=== PATIENT | male | born 1950 | race Caucasian/White ===

== ENCOUNTER 2017-09-26 14:24 | Observation (INO) | payer MEDICARE ==
[2017-09-26] MEDS ORDERED: Albuterol-Ipratrop 3 mg / 0.5 (3 ml) UD IH STA (15:05)
[2017-09-26] MEDS ORDERED: Albuterol-Ipratrop 3 mg / 0.5 (3 ml) UD INH STA (15:05)
--- NOTE | 2017-09-26 15:09 | ED PDOC ---
HPI: CCC, URI, Sore Throat Time Seen by Provider: 09/26/17 14:56 Chief Complaint (Nursing): Cough, Cold, Congestion Chief Complaint (Provider): Cough History Per: Patient History/Exam Limitations: no limitations Onset/Duration Of Symptoms: Days (x 2 weeks) Current Symptoms Are (Timing): Still Present Additional Complaint(s): 67-year-old male with a past medical history of hypertension, diabetes, and hypercholesterolemia, presents to the ER for 2 weeks of coughing. Cough is associated with congestion and yellow mucus production. Patient also reports feeling fatigued. No nausea, vomiting, diarrhea, fever, chills, sore throat, chest pain. Patient states he had asthma as a child but denies wheezing. Took robitussin at home without relief. Mild dyspnea off and on. PMD: Dr. Toledo Past Medical History Reviewed: Historical Data, Nursing Documentation, Vital Signs Vital Signs: Last Vital Signs Temp 98.1 F 09/26/17 14:49 Pulse 94 H 09/26/17 16:56 Resp 18 09/26/17 16:56 BP 174/100 H 09/26/17 16:56 Pulse Ox 97 09/26/17 16:57 - Medical History PMH: Diabetes, HTN, Hypercholesterolemia - Family History Family History: States: Unknown Family Hx - Allergies Allergies/Adverse Reactions: Allergies Allergy/AdvReac Type Severity Reaction Status Date / Time No Known Allergies Allergy Verified 09/26/17 14:48 Review of Systems ROS Statement: Except As Marked, All Systems Reviewed And Found Negative Constitutional: Negative for: Fever, Chills, Other (body aches) ENT: Positive for: Nose Congestion. Negative for: Throat Pain Cardiovascular: Negative for: Chest Pain Respiratory: Positive for: Cough, Shortness of Breath, Sputum. Negative for: Wheezing Gastrointestinal: Negative for: Nausea, Vomiting, Diarrhea Neurological: Negative for: Weakness Physical Exam - Reviewed Nursing Documentation Reviewed: Yes Vital Signs Reviewed: Yes - Physical Exam Appears: Positive for: Non-toxic, No Acute Distress Head Exam: Positive for: ATRAUMATIC, NORMOCEPHALIC Skin: Positive for: Normal Color, Warm, Dry Eye Exam: Positive for: EOMI, Normal appearance, PERRL ENT: Positive for: Normal ENT Inspection. Negative for: Pharyngeal Erythema, Tonsillar Exudate Neck: Positive for: Normal, Painless ROM, Supple Cardiovascular/Chest: Positive for: Regular Rate, Rhythm. Negative for: Murmur Respiratory: Positive for: Other (course breath sounds bilaterally). Negative for: Respiratory Distress Pulses-Radial (L): 2+ Pulses-Radial (R): 2+ Gastrointestinal/Abdominal: Positive for: Normal Exam, Soft. Negative for: Tenderness Back: Positive for: Normal Inspection. Negative for: L CVA Tenderness, R CVA Tenderness, Vertebral Tenderness Extremity: Positive for: Normal ROM. Negative for: Pedal Edema, Deformity Neurologic/Psych: Positive for: Alert, Oriented. Negative for: Motor/Sensory Deficits - Laboratory Results Result Diagrams: 09/26/17 16:12 09/26/17 16:12 Interpretation Of Abn Labs: 943 probnp, elevated sugar - ECG ECG: Positive for: Interpreted By Me, Viewed By Me ECG Rhythm: Positive for: Nonspecific Changes O2 Sat by Pulse Oximetry: 97 (RA) Pulse Ox Interpretation: Normal - Radiology X-Ray: Read By Radiologist X-Ray Interpretation: No Acute Disease - Progress ED Course And Treament: 1700: Stable. AAOx3. Pain free. Will need admit for further eval of chf. Pt. agrees. Spoke with Dr. Lynn. Will admit and give further orders when pt. reaches floor. Medical Decision Making Medical Decision Making: Time: 15:04 Initial Impression: 67 y/o male with cough and congestion Initial Plan: --EKG --CMP --B-type natriuretic peptide --Troponin I --CBC w/ differential --PTT --Prothrombin time --Influenza A B --Chest X-ray --Duoneb 3ml INH x2 --Solu-medrol 125 mg IVP --Peak Flow pre/post treatment --Reevaluation Scribe Attestation: Documented by Ana Nava, acting as a scribe for Esteban Young MD Provider Scribe Attestation: All medical record entries made by the Scribe were at my direction and personally dictated by me. I have reviewed the chart and agree that the record accurately reflects my personal performance of the history, physical exam, medical decision making, and the department course for this patient. I have also personally directed, reviewed, and agree with the discharge instructions and disposition. Disposition - Clinical Impression Clinical Impression: CHF exacerbation - Patient ED Disposition Is Patient to be Admitted: Yes Counseled Patient/Family Regarding: Studies Performed, Diagnosis - Disposition Disposition Time: 17:02 Condition: FAIR - Pt Status Changed To: Hospital Disposition Of: Observation - POA Present On Arrival: None
--- NOTE | 2017-09-26 15:47 | RAD ---
HISTORY: dyspnea COMPARISON: 10/29/2012 FINDINGS: LUNGS: No active pulmonary disease. PLEURA: No significant pleural effusion identified, no pneumothorax apparent. CARDIOVASCULAR: Normal. OSSEOUS STRUCTURES: No significant abnormalities. VISUALIZED UPPER ABDOMEN: Normal. OTHER FINDINGS: None. IMPRESSION: No active disease.
[2017-09-26] MEDS ORDERED: Albuterol-Ipratrop 3 mg / 0.5 (3 ml) UD ONE (15:50)
[2017-09-26 16:17] LABS: BASO % 0.4 % (0.0-2.0); EOS # 0.3 K/uL (0.0-0.7); EOS % 3.1 % (0.0-4.0); HEMOGLOBIN 13.1 g/dL (12.0-18.0); LYMPH # 1.4 K/uL (1.0-4.3); LYMPH % 15.2 % (20.0-40.0); MEAN CELL VOLUME 90.1 fl (80.0-94.0); MEAN CORPUSCULAR HEMOGLOBIN 29.4 pg (27.0-31.0); MEAN CORPUSCULAR HGB CONC 32.6 g/dL (33.0-37.0); MEAN PLATELET VOLUME 7.2 fl (7.2-11.7); MONO # 0.9 K/uL (0.0-0.8); MONO % 9.3 % (0.0-10.0); NEUT # 6.9 K/uL (1.8-7.0); RBC 4.47 Mil/uL (4.40-5.90); RED CELL DISTRIBUTION WIDTH 12.8 % (11.5-14.5); WHITE BLOOD COUNT 9.5 K/uL (4.8-10.8)
[2017-09-26 16:30] LABS: ALB/GLOB RATIO 1.1 (1.0-2.1); ALT/SGPT 61 U/L (21-72); AST/SGOT 37 U/L (17-59); BLOOD UREA NITROGEN 20 mg/dl (9-20); CALCIUM 9.2 mg/dL (8.4-10.2); GFR AFRICAN-AMERICAN > 60; GFR NON-AFRICAN AMERICAN > 60
[2017-09-26 16:32] LABS: INR 0.9 (0.9-1.2); PARTIAL THROMBOPLASTIN TIME 34.7 Seconds (25.6-37.1); PROTHROMBIN TIME 9.8 Seconds (9.8-13.1)
[2017-09-26 16:43] LABS: B-TYPE NATRIURETIC PEPTIDE 943 pg/ml (0-900)
[2017-09-26] MEDS ORDERED: Insulin Regular 100 units/ml IV STA (16:58)
[2017-09-26] MEDS ORDERED: Insulin Regular 100 units/ml ONE (17:38)
[2017-09-26] MEDS ORDERED: Albuterol-Ipratrop 3 mg / 0.5 (3 ml) UD INH PRN (19:40)
[2017-09-26] MEDS: Insulin Regular 100 units/ml SC SCH (21:38)
[2017-09-26] MEDS ORDERED: Pneumococcal 23-Valent Vaccine IM ONE (22:27)
[2017-09-26] MEDS ORDERED: Influenza Vaccine 18yr & older 0.5 ML/45 MCG SYR IM ONE (22:27)
[2017-09-27 05:46] LABS: HEMOGLOBIN 13.6 g/dL (12.0-18.0); MEAN CELL VOLUME 89.5 fl (80.0-94.0); MEAN CORPUSCULAR HEMOGLOBIN 29.9 pg (27.0-31.0); MEAN CORPUSCULAR HGB CONC 33.4 g/dL (33.0-37.0); RBC 4.54 Mil/uL (4.40-5.90); RED CELL DISTRIBUTION WIDTH 12.4 % (11.5-14.5); WHITE BLOOD COUNT 10.9 K/uL (4.8-10.8)
[2017-09-27 05:55] LABS: BLOOD UREA NITROGEN 28 mg/dl (9-20); CALCIUM 9.3 mg/dL (8.4-10.2); GFR AFRICAN-AMERICAN > 60; GFR NON-AFRICAN AMERICAN > 60; HDL CHOLESTEROL 48 MG/DL (30-70)
[2017-09-27 06:06] LABS: B-TYPE NATRIURETIC PEPTIDE 1450 pg/ml (0-900); LDL CHOLESTEROL 128 mg/dL (0-129)
[2017-09-27] MEDS: Insulin Regular 100 units/ml SC SCH ×2 (06:36→12:40)
[2017-09-27] MEDS ORDERED: Pravastatin Sodium 20 MG TAB PO SCH (09:00)
[2017-09-27] MEDS ORDERED: Enoxaparin 40 mg Syringe SC SCH (09:00)
--- NOTE | 2017-09-27 10:54 | CARD ---
APPROVED REPORT EKG Measurement Heart [id number] <Conclusion> Normal sinus rhythm Possible Left atrial enlargement Left ventricular hypertrophy Cannot rule out Anteroseptal infarct, age undetermined Abnormal ECG
--- NOTE | 2017-09-27 12:00 | CARD ---
APPROVED REPORT EXAM: Two-dimensional and M-mode echocardiogram with Doppler and color Doppler. Other Information Quality : GoodRhythm : INDICATION Congestive Heart Failure 2D DIMENSIONS Left Atrium (2D)3.21 (1.6-4.0cm)IVSd1.05 (0.7-1.1cm) Aortic Root (2D)2.64 (2.0-3.7cm)LVDd4.97 (3.9-5.9cm) LVOT Diameter1.67 (1.8-2.4cm)PWd0.74 (0.7-1.1cm) IVSs1.32 (0.8-1.2cm)LVDs3.51 (2.5-4.0cm) FS (%) 29.5 %PWs1.37 (0.8-1.2cm) M-Mode DIMENSIONS Left Atrium (MM)3.43 (2.5-4.0cm)IVSd1.13 (0.7-1.1cm) Aortic Root3.23 (2.2-3.7cm)LVDd5.33 (4.0-5.6cm) Aortic Cusp Exc.1.37 (1.5-2.0cm)PWd1.03 (0.7-1.1cm) IVSs1.43 cmFS (%) 19 % LVDs4.33 (2.0-3.8cm)PWs1.37 cm Aortic Valve AI P 1/2 [id number] Mitral Valve E/A ratio0.0 TDI Lateral E' Peak V12.06cm/sMedial E' Peak V11.98cm/sE/Lateral E'0.0 E/Medial E'0.0 Pulmonary Valve PV Peak Nbxfsmzq391.5cm/s LEFT VENTRICLE The left ventricle is normal size. There is normal left ventricular wall thickness. The left ventricular function is normal. The left ventricular ejection fraction is within the normal range. The Ejection Fraction is 60-65%. There is normal LV segmental wall motion. The left ventricular diastolic function is normal. No left ventricle thrombus noted on this study. RIGHT VENTRICLE The right ventricle is normal size. There is normal right ventricular wall thickness. The right ventricular systolic function is normal. ATRIA The left atrium size is normal. The right atrium size is normal. The interatrial septum is intact with no evidence for an atrial septal defect. AORTIC VALVE The aortic valve is normal in structure. There is mild aortic regurgitation. There is no aortic valvular stenosis. There is no aortic valvular vegetation. MITRAL VALVE The mitral valve is normal in structure. There is no evidence of mitral valve prolapse. There is no mitral valve stenosis. There is no mitral valve regurgitation noted. TRICUSPID VALVE The tricuspid valve is normal in structure. There is no tricuspid valve regurgitation noted. There is no tricuspid valve prolapse or vegetation. There is no tricuspid valve stenosis. PULMONIC VALVE The pulmonary valve is normal in structure. There is no pulmonic valvular regurgitation. There is no pulmonic valvular stenosis. GREAT VESSELS The aortic root is normal in size. The IVC is normal in size and collapses >50% with inspiration. PERICARDIAL EFFUSION The pericardium appears normal. <Conclusion> The left ventricle is normal size. The left ventricular function is normal. The left ventricular ejection fraction is within the normal range. The Ejection Fraction is 60-65%. There is mild aortic regurgitation.
--- NOTE | 2017-09-27 12:16 | CARD ---
APPROVED REPORT EKG Measurement Heart [id number] <Conclusion> Normal sinus rhythm Minimal voltage criteria for LVH, may be normal variant Cannot rule out Anteroseptal infarct, age undetermined Abnormal ECG
[2017-09-27 12:52] VITALS: O2SAT 96
[2017-09-27 15:53] VITALS: BP 145/81; PULSE 95; RESP 18; TEMP 97.4
--- NOTE | 2017-09-28 07:35 | CON ---
DATE: CARDIOLOGY CONSULTATION REASON FOR CONSULTATION: Abnormal EKG HISTORY OF PRESENT ILLNESS: The patient is a 67-year-old male, who has a history of hypertension, diabetes mellitus, hyperlipidemia, presented to the ER because of productive cough of yellowish sputum. The patient denies any fever or chills and denies any substernal chest pain. The patient is unaware of any history of heart attack in the past. SOCIAL HISTORY: The patient is a former smoker. He is retired. 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 MEDICATIONS: Albuterol inhaler q. 6 hours, Glucophage 1 g twice a day, Januvia 100 mg daily, Lipitor 20 mg once a day, Lovenox 40 mg subcutaneously once a day, Neurontin 100 mg daily, Norvasc 5 mg daily, Pravachol 20 mg daily, Zestril 10 mg daily. REVIEW OF SYSTEMS: No fever or chills. No dizziness or syncope. No nausea or vomiting. PHYSICAL EXAMINATION: GENERAL: The patient is an elderly male, who does not appear to be in any distress. VITAL SIGNS: Blood pressure 124/73, heart rate 101, temperature 97.3, respirations 20. HEENT: Normocephalic. CHEST: Clear. HEART: S1 and S2 regular. ABDOMEN: Soft. EXTREMITIES: No edema. LABORATORY DATA: SMA-7 today, sodium 135, potassium 4.4, chloride 99, CO2 of 27, glucose 385, BUN 28, creatinine 0.9. Troponin 0.012. Total cholesterol slightly elevated to 113. ProBNP is 1450, elevated. PT, PTT and INR within normal limits. Today's CBC, hemoglobin, hematocrit 13.6 and 40.6, white count 10.9, platelet count 289,000. EKG revealed sinus rhythm, possible left atrial enlargement, LVH, cannot rule out anteroseptal WI of indeterminate age. Echocardiography study revealed normal left ventricular size and systolic function. Ejection fraction in the range of 60% to 65%. Mild aortic insufficiency. ASSESSMENT: 1. Hypertension. 2. Uncontrolled diabetes mellitus. 3. Hyperlipidemia. 4. Upper respiratory tract infection. 5. Abnormal echocardiogram with questionable evidence of old anteroseptal myocardial infarction. RECOMMENDATIONS: Continue current metformin 1 g twice a day, Januvia 100 mg once a day, Lipitor 20 mg once a day, Lovenox 40 mg once a day, Norvasc at 5 mg once a day, Zestril 10 mg once a day. Start aspirin at 81 mg once a day. Prabhakar Gentile MD
--- NOTE | 2017-09-28 08:26 | HP ---
Mr. Millan is a 67-year-old male who was admitted via the emergency room because of shortness of breath for the past several weeks prior to presentation associated with cough, which is productive of yellowish sputum. He was seen in the emergency room and admitted for acute congestive heart failure. He indicates that he had seen his primary care physician several weeks ago and had been on [id number] medications, but symptoms, however, worsened. PAST MEDICAL HISTORY: Remarkable for diabetes mellitus, hypertension, and hyperlipidemia. There is a question of noncompliance to medications. FAMILY HISTORY: Unremarkable. 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 REVIEW OF SYSTEMS: Essentially remarkable for cough and shortness of breath. PHYSICAL EXAMINATION: GENERAL: The patient is alert and oriented. VITAL SIGNS: On admission, blood pressure 174/100 with a pulse of 94, respiratory rate 18. He is febrile. O2 sat 97% on room air. SKIN: Shows fair turgor. HEENT: Pupils are equal and reactive to light and accommodation. Mouth shows fair hygiene. NECK: JVP flat. LUNGS: Clear with end-expiratory rales. HEART: Regular. No murmurs or gallops. ABDOMEN: Soft, nontender. No organomegaly. EXTREMITIES: Show no edema or cyanosis. CENTRAL NERVOUS SYSTEM: Grossly intact. LABORATORY DATA: Remarkable for sodium of 135, potassium 4.4, BUN 28, creatinine 0.9, and serum glucose 322, down from 464. Troponin less than 0.012, proBNP 1450. Lipid profile remarkable for cholesterol of 213. Chest x-ray shows no acute cardiopulmonary pathology, but official report is still pending. EKG; normal sinus rhythm, possible left atrial enlargement. left ventricular hypertrophy, cannot rule out anteroseptal infarct, age undetermined. IMPRESSION: Shortness of breath, probably secondary to mild congestive heart failure with diastolic dysfunction; diabetes mellitus with hyperglycemia type 2, poorly controlled due to noncompliance with medication and diet; hypertension with hypertensive heart disease. PLAN: Cardiology evaluation to maintain the patient on diuretics and advised compliance to medications. The patient to be discharged home if cleared by Cardiology. Houston Lynn MD [facility] # [id number]
--- NOTE | 2017-09-28 12:26 | CP.PCM.DIS ---
Provider - Provider Date of Admission: 09/26/17 17:07 Attending physician: Houston Lynn MD Time Spent in preparation of Discharge (in minutes): 30 Diagnosis - Discharge Diagnosis (1) CHF exacerbation Status: Acute (2) Hypertension Status: Acute Hospital Course - Lab Results Lab Results: Most Recent Lab Values WBC 10.9 K/uL (4.8-10.8) H 09/27/17 04:30 RBC 4.54 Mil/uL (4.40-5.90) 09/27/17 04:30 Hgb 13.6 g/dL (12.0-18.0) 09/27/17 04:30 Hct 40.6 % (35.0-51.0) 09/27/17 04:30 MCV 89.5 fl (80.0-94.0) 09/27/17 04:30 MCH 29.9 pg (27.0-31.0) 09/27/17 04:30 MCHC 33.4 g/dL (33.0-37.0) 09/27/17 04:30 RDW 12.4 % (11.5-14.5) 09/27/17 04:30 Plt Count 289 K/uL (130-400) 09/27/17 04:30 MPV 7.2 fl (7.2-11.7) 09/26/17 16:12 Neut % (Auto) 72.0 % (50.0-75.0) 09/26/17 16:12 Lymph % (Auto) 15.2 % (20.0-40.0) L 09/26/17 16:12 [place] % (Auto) 9.3 % (0.0-10.0) 09/26/17 16:12 Eos % (Auto) 3.1 % (0.0-4.0) 09/26/17 16:12 Baso % (Auto) 0.4 % (0.0-2.0) 09/26/17 16:12 Neut # 6.9 K/uL (1.8-7.0) 09/26/17 16:12 Lymph # 1.4 K/uL (1.0-4.3) 09/26/17 16:12 [place] # 0.9 K/uL (0.0-0.8) H 09/26/17 16:12 Eos # 0.3 K/uL (0.0-0.7) 09/26/17 16:12 Baso # 0.0 K/uL (0.0-0.2) 09/26/17 16:12 PT 9.8 Seconds (9.8-13.1) 09/26/17 16:12 INR 0.9 (0.9-1.2) 09/26/17 16:12 APTT 34.7 Seconds (25.6-37.1) 09/26/17 16:12 Sodium 135 mmol/l (132-148) 09/27/17 04:30 Potassium 4.4 MMOL/L (3.6-5.0) 09/27/17 04:30 Chloride 99 mmol/L (98-107) 09/27/17 04:30 Carbon Dioxide 27 mmol/L (22-30) 09/27/17 04:30 Anion Gap 13 (10-20) 09/27/17 04:30 BUN 28 mg/dl (9-20) H 09/27/17 04:30 Creatinine 0.9 mg/dl (0.8-1.5) 09/27/17 04:30 Est GFR ( Amer) > 60 09/27/17 04:30 Est GFR (Non-Af Amer) > 60 09/27/17 04:30 POC Glucose (mg/dL) 192 mg/dL (65-110) H 09/27/17 15:58 Random Glucose 385 mg/dL (75-110) H 09/27/17 04:30 Calcium 9.3 mg/dL (8.4-10.2) 09/27/17 04:30 Total Bilirubin 0.3 mg/dl (0.2-1.3) 09/26/17 16:12 AST 37 U/L (17-59) 09/26/17 16:12 ALT 61 U/L (21-72) 09/26/17 16:12 Alkaline Phosphatase 149 U/L (38-126) H 09/26/17 16:12 Troponin I 0.0180 ng/mL (0.00-0.120) 09/27/17 13:02 NT-Pro-B Natriuret Pep 1450 pg/ml (0-900) H 09/27/17 04:30 Total Protein 7.7 G/DL (6.3-8.2) 09/26/17 16:12 Albumin 4.0 g/dL (3.5-5.0) 09/26/17 16:12 Globulin 3.7 gm/dL (2.2-3.9) 09/26/17 16:12 Albumin/Globulin Ratio 1.1 (1.0-2.1) 09/26/17 16:12 Triglycerides 76 mg/DL (0-149) D 09/27/17 04:30 Cholesterol 213 mg/dL (0-199) H 09/27/17 04:30 LDL Cholesterol Direct 128 mg/dL (0-129) 09/27/17 04:30 HDL Cholesterol 48 MG/DL (30-70) 09/27/17 04:30 Influenza Typ A,B (EIA) Negative for flu a/b (NEGATIVE) 09/26/17 16:12 - Hospital Course Hospital Course: CLINICALLY IMPROVED Discharge Exam - Head Exam Head Exam: ATRAUMATIC, NORMOCEPHALIC - Eye Exam Eye Exam: EOMI, Normal appearance, PERRL Pupil Exam: NORMAL ACCOMODATION, PERRL - GI/Abdominal Exam GI & Abdominal Exam: Normal Bowel Sounds - Rectal Exam Rectal Exam: NORMAL INSPECTION - Neurological Exam Neurological exam: Alert, CN II-XII Intact, Normal Gait, Oriented x3, Reflexes Normal - Psychiatric Exam Psychiatric exam: Normal Affect, Normal Mood - Skin Skin Exam: Dry, Intact, Normal Color, Warm Discharge Plan - Discharge Medications Prescriptions: Aspirin [Aspirin Chewable] 81 mg PO DAILY #30 chew MetFORMIN [glucoPHAGE] 1,000 mg PO BID #30 tab Furosemide [Lasix] 20 mg PO DAILY #30 tablet amLODIPine [Norvasc] 5 mg PO DAILY #30 tab Pravastatin Sodium [Pravachol] 20 mg PO HS #30 tab - Follow Up Plan Condition: FAIR Disposition: HOME/ ROUTINE Patient education suggested?: Yes Instructions: Heart Failure (DC) Additional Instructions: follow up Dr. Mariano Toledo- office closed until september 28-unable to make appointment before leaving hospital. Referrals: Maci Toledo MD [Medical Doctor] -
== END 2017-09-27 17:00 | disposition home or self-care (01) ==
LOC: H.ER 14:24 → H.ERHOLD 17:07 → H.TEL 18:48
PROVIDERS: ADMIT Internal Medicine Pulmonary Disease; ATTEND Internal Medicine Pulmonary Disease
DX: I11.0 Hypertensive heart disease with heart failure (principal); I50.30 Unspecified diastolic (congestive) heart failure; J06.9 Acute upper respiratory infection, unspecified; E78.5 Hyperlipidemia, unspecified; E11.65 Type 2 diabetes mellitus with hyperglycemia; R94.31 Abnormal electrocardiogram [ECG] [EKG]; Z23 Encounter for immunization; Z91.14 Patient's other noncompliance with medication regimen; Z91.11 Patient's noncompliance with dietary regimen; Z87.891 Personal history of nicotine dependence
CPT/HCPCS: 36415; 71045; 80048; 80053; 80061; 82948; 83880; 84484; 85025; 85027; 85610; 85730; 87804; 90732; 93005; 93306; 96374; 99285; G0008; G0009; G0378; J1650; J1940; J2930; Q2035